=== PATIENT | female | born 1950 | race Caucasian/White ===

== ENCOUNTER 2023-10-17 08:13 | Emergency (ER) | payer OTHER, MEDICARE ==
[~2023-10-17] VITALS: Ht 170.2 cm; Wt 90.7 kg
[2023-10-17 08:22] VITALS: BP_SYST 141; PULSE 79; RESP 15; TEMP 97.8; O2SAT 93
[2023-10-17] MEDS: DIPHENHYDRAMINE INJ 50 MG/ML VIAL IM ONE (08:47)
[2023-10-17] MEDS: predniSONE 20 MG TABLET PO ONE (08:47)
[2023-10-17] MEDS ORDERED: PRED50TA PO (09:24)
[2023-10-17] MEDS ORDERED: CETI10CA PO (09:24)
[2023-10-17 09:35] VITALS: BP_SYST 141; PULSE 79; RESP 15; TEMP 97.8; O2SAT 93
== END 2023-10-17 09:37 | disposition home or self-care (01) ==
LOC: SED 08:13
DX: L50.0 Allergic urticaria (principal); T78.1XXA Other adverse food reactions, not elsewhere classified, initial encounter; X58.XXXA Exposure to other specified factors, initial encounter; Z88.0 Allergy status to penicillin; Z88.2 Allergy status to sulfonamides; Z88.8 Allergy status to other drugs, medicaments and biological substances; Z79.899 Other long term (current) drug therapy; Z79.2 Long term (current) use of antibiotics
CPT/HCPCS: 99283; 96372; J7512; J1200